=== PATIENT | female | born 1990 ===

== ENCOUNTER 2021-12-01 13:40 | Outpatient (CLI) | payer OTHER | END 2021-12-01 13:41 | disposition home or self-care (01) | LOC: LABHHL 13:40 | PROVIDERS: ATTEND Otolaryngology | DX: J32.0 Chronic maxillary sinusitis (principal); J32.2 Chronic ethmoidal sinusitis; J32.1 Chronic frontal sinusitis | CPT/HCPCS: 88304 ==